=== PATIENT | male | born 1960 | race African-American/Black ===

== ENCOUNTER 2024-09-19 05:09 | Emergency (ER) | payer OTHER, SELFPAY ==
--- NOTE | ~2024-09-19 | XR_ITS ---
CLINICAL HISTORY: diff breathing 1 view chest x-ray. Comparison: None Findings: The lungs are adequately expanded. No focal confluent opacity. No effusion or pneumothorax. Cardiac and mediastinal contours are within normal limits. No acute osseous abnormality. Old right-sided rib fracture suggested. Impression: No acute process. This document has been electronically signed by: Wild Leos MD on 09/19/2024 08:07:38
--- NOTE | ~2024-09-19 | XR_ITS ---
EXAMINATION: XR FOOT, LEFT CLINICAL INFORMATION: pain 2nd toe COMPARISON: None available. TECHNIQUE: AP, lateral, and oblique views of the left foot. FINDINGS: The bones and soft tissues are normal. No fracture, especially no abnormality involving the second toe.. Alignment is anatomic. Mild reduction in the PIP and DIP joint spaces are noted. There is a small retrocalcaneal enthesophyte and dorsal intertarsal osteophytosis. Minimal soft tissue swelling distal second toe is noted. XR/XR foot LT min 3V IMPRESSION: No visible acute fracture or dislocation. Mild DJD PIP and DIP joints. No fracture involving the right second. There is minimal soft tissue swelling distal second digit. Electronically signed by: Sadi Avalos MD 09/19/2024 09:14 AM HOMER
[2024-09-19 05:13] VITALS: BP 131/79; PULSE 111; RESP 20; TEMP 38.2; O2SAT 98; BMI 36.2
--- NOTE | 2024-09-19 06:50 | ECG_ITS ---
Test Reason : CHEST PAIN/SOB Blood Pressure : / mmHG Vent. Rate : 079 BPM Atrial Rate : 078 BPM P-R Int : 000 ms QRS Dur : 068 ms QT Int : 342 ms P-R-T Axes : 119 050 136 degrees QTc Int : 392 ms Atrial fibrillation Cannot rule out Anterior infarct , age undetermined ST & T wave abnormality, consider lateral ischemia Abnormal ECG No previous ECGs available Referred By: Generic ED Physician Electronically Signed By:CHARLIE BENTLEY MD
[2024-09-19 07:53] LABS: Influenza A PCR POSITIVE (Negative); Influenza B PCR NEGATIVE (Negative); Resp Syncy Virus RNA Qual PCR NEGATIVE (Negative); SARS COV2 PCR INHOUSE NEGATIVE (Negative)
--- NOTE | 2024-09-19 08:03 | ED_ITS ---
HPI - General Adult General Chief complaint: General Medical Stated complaint: r toe and ankle pain, sob, headache Time Seen by Provider: 09/19/24 08:02 Source: patient Mode of arrival: wheelchair Limitations: other (poor historian) History of Present Illness ED Provider: KHOA ENGLISH narrative: 63 yo male with PMH of afib on eliquis, CKD, HTN, DM, uses inhalers but unclear if he has COPD - he goes to [facility] and doesn't know much history. He c/o waking up with cough, dyspnea, body aches, doesn't feel well. He denies to me that this started Thursday he states just today. He does note no trauma to L 2nd toe but has pain no redness, no rash, he states it hurts to touch. He is a very poor historian. Tells me he is not around sick contacts and no recent travel. Has not taken any medications for this yet. He has no chest pain MD complaint: viral syndrome, toe pain Onset (ago): day(s) (1) Location: left and lower extremity Radiation: non-radiation Severity: moderate Quality: aching Pain Consistency: intermittent Relieving factors: none Exacerbating factors: movement Associated symptoms: shortness of breath Treatments prior to arrival: none Related Data Previous Rx's ?Medication ?Instructions ?Recorded oseltamivir 75 mg capsule (Tamiflu) 75 mg PO BID 5 days #9 caps 09/19/24 prednisone 20 mg tablet 40 mg (2 x 20 mg) PO DAILY 4 days 09/19/24 #8 tabs Allergies Allergy/AdvReac Type Severity Reaction Status Date / Time crab Allergy Swelling Verified 09/19/24 05:16 Review of Systems 2 Review of Systems: Constitutional : No Fever, No Chills ENT/Mouth : No Ear Pain, No Hoarseness, No sore throat Eyes: No Eye Pain, No Swelling, No Redness, No Foreign Body Cardiovascular : No Chest Pain, pos SOB Respiratory : No Cough, No Dyspnea Gastrointestinal : No Nausea, No Vomiting, No Diarrhea, No abdominal Pain Genitourinary : No Dysuria, No Hematuria Musculoskeletal : positive joint pain, pos Myalgias, No Joint Swelling Skin : No Skin lacerations, No rash Neuro : No Weakness, No Numbness, No Loss of Consciousness, No Dizziness, No Headache All other systems reviewed and are negative [facility] Past Medical History Attestation statement: The following information was validated with the patient. Source: old records reviewed Medical History CKD (chronic kidney disease) HTN (hypertension) with goal to be determined Afib Social History Social History (Updated 09/19/24 @ 08:34 by Brittni Trammell DO) Patient Tobacco Use Status: Never used Tobacco Advance Directives: No Advance Directives Information Provided: Yes Do you have a plan to hurt others: No Plan Physical Exam ED Vital Signs: Vital Signs - 24 hr 09/19/24 05:13 09/19/24 09:20 Temperature 100.7 F H Pulse Rate 111 H 90 Respiratory Rate 20 19 Blood Pressure 131/79 111/68 Pulse Oximetry 98 95 Oxygen Delivery Method Room Air Room Air BMI result Body Mass Index 36.2 Appearance: Alert. Oriented X3. No acute distress. Eyes: Pupils equal, round and reactive to light. ENT: Pharynx normal. Neck: Normal inspection. Neck supple. CVS: irregular and tachycardic heart rate and rhythm. Pulses normal. Respiratory: No respiratory distress. Breath sounds slight exp wheeze noted Abdomen: Soft and nontender. Skin: Skin warm and dry. Normal skin color. Normal skin turgor. Extremities: No lower extremity edema. distal pulses intact, has thickened yellow toenails but no purulence, redness, warmth, SILT intact, no swelling, L 2nd toe hammer toe noted but otherwise no signs of skin breakdown, toe infection, nail infection. Neuro: Oriented X 3. No motor deficit. No sensory deficit. Course Course Course Narrative: tachycardia and fever to due to Flu A viral infection and not bacterial infection Reevaluation(s) Reevaluation #1: trop negative will repeat 2nd trop if negative stable for DC Medications Administered Generic Name Dose Route Start Last Admin Trade Name Freq PRN Reason Stop Dose Admin Magnesium Sulfate 2 gm in 50 mls @ 25 mls/hr 09/19/24 09:02 09/19/24 09:24 Magnesium Sulfate/H2o IV 09/19/24 11:01 25 mls/hr ONCE ONE Administration Discontinued Medications Generic Name Dose Route Start Last Admin Trade Name Freq PRN Reason Stop Dose Admin Acetaminophen 650 mg 09/19/24 08:26 09/19/24 08:48 Acetaminophen 325 Mg Tablet PO 09/19/24 08:27 650 mg ONCE ONE Administration Albuterol Sulfate 2.5 mg/ 0 mg 09/19/24 09:03 09/19/24 09:04 Albuterol/Ipratropium 3 ml INHALE 09/19/24 09:04 1 dose ONCE ONE Administration Oseltamivir Phosphate 75 mg 09/19/24 09:19 09/19/24 09:34 Oseltamivir Phosphate 75 Mg Capsule PO 09/19/24 09:20 75 mg ONCE ONE Administration Potassium Chloride 20 meq 09/19/24 09:02 09/19/24 09:25 Potassium Chloride Er 20 Meq Tab.Er.Prt PO 09/19/24 09:03 20 meq ONCE ONE Administration Medical Decision Making Medical Decision Making [facility] Narrative: 63 yo male with PMH of afib on eliquis, CKD, HTN, DM, uses inhalers but unclear if he has COPD here with viral like illness and not feeling well has some mild dyspnea but no leg edema and is compliant with his eliquis - doubt VTE, has low grade fever and diffuse body aches - viral panel ordered, has toe pain but no signs of infection and pulses intact no signs of embolic event on exam toe is normal color and warm to touch. Labs, viral panel, CXR, toe xray, tylenol, records from [facility] Differential Diagnosis Differential Diagnoses: The differential diagnosis associated with the presentation includes viral syndrome, toe fracture, ingrown toenail without infection, reactive airway ds, aflutter Admission/Observation Consideration of admission/observation: Escalation of care including admission/observation considered no hypoxia feels better repeat trop flat given repletion will start on tamiflu and oral prednisone he is feeling much better stable for DC Lab Data [facility] Lab Attestation statement: I reviewed the patient's lab results. 09/19/24 08:28 09/19/24 08:28 Labs: Lab Results 09/19/24 09/19/24 Range/Units 06:57 08:28 WBC 7.1 (4.8-10.8) X10*3/uL RBC 4.46 L (4.60-5.80) X10*6/uL Hgb 12.8 L (14.0-18.0) g/dl Hct 39.2 L (42.0-52.0) % MCV 87.9 (80.0-98.0) fL MCH 28.7 (27.0-33.0) pg MCHC 32.7 (31.0-36.0) g/dl RDW 13.8 (11.0-16.0) % Plt Count 240 (160-400) X10*3/uL MPV 9.6 (9.4-12.4) fL Immature Gran % (Auto) 0.4 (0.0-0.4) % Neut % (Auto) 81.6 H (45-73) % Lymph % (Auto) 7.8 L (20-40) % [place] % (Auto) 10.2 (2-11) % Eos % (Auto) 0.0 (0-4) % Baso % (Auto) 0.0 (0-2) % Lymph # (Auto) 0.6 L (1.2-4.9) X10*3/uL [place] # (Auto) 0.7 (0.1-1.2) X10*3/uL Eos # (Auto) 0.0 (0.0-0.4) X10*3/uL Baso # (Auto) 0.0 (0.0-0.2) X10*3/uL Abs Immat Gran (auto) 0.03 (0.00-0.03) X10*3/uL Absolute Neuts (auto) 5.8 (2.0-8.3) x10*3/uL Absolute Nucleated RBC 0.000 (0.0-0.012) X10*3/uL Nucleated RBC % (auto) 0.0 (0.0-0.2) /100WBC PT 13.2 H (10.9-12.4) SEC INR 1.1 (0.9-1.1) Sodium 140 (135-145) mmol/L Potassium 3.2 L (3.3-5.1) mmol/L Chloride 102 (96-108) mmol/L Carbon Dioxide 28 (22-29) mmol/L Anion Gap 13 (12-20) BUN 16 (9-16) mg/dL Creatinine 1.15 (0.5-1.4) mg/dL Estim Creat Clear Calc 96.0 Estimated GFR > 60 Random Glucose 134 H (60-115) mg/dL Calcium 9.0 (8.4-10.2) mg/dL Magnesium 1.4 L* (1.6-2.6) mg/dL Total Bilirubin 0.5 (0.0-1.0) mg/dL Direct Bilirubin 0.2 (0.0-0.5) mg/dL AST 21 (5-37) U/L ALT 19 (0-40) U/L Alkaline Phosphatase 59 (39-117) U/L Troponin I High Sens 17.6 (<3.5-35.0) ng/L B-Natriuretic Peptide 93 (<100) pg/mL Total Protein 6.8 (6.5-8.0) g/dL Albumin 3.7 (3.5-5.0) g/dL Lipase 17 (8-78) U/L Influenza Type A (PCR) POSITIVE A (Negative) Influenza Type B (PCR) NEGATIVE (Negative) RSV RNA Qual (PCR) NEGATIVE (Negative) SARS-CoV-2 RNA (RT-PCR) NEGATIVE (Negative) Independent Interpretation I performed an independent interpretation of an: EKG and Plain X-Ray (normal ) Interpretation: Rate: Rhythm: afib [place]: normal Normal QRS complex. ST T wave : no DONNY, inverted t waves I, aVL, V5-V6, II qTC: 392 prior studies: no prior The study has been interpreted contemporaneously by me. . Radiology Impression Discussion of test interpretation with radiology: I have reviewed the radiologist's reading. External Record Review External record reviewed: Outpatient record Critical Care Time Critical Care Time Critical Care Time: Yes Total Critical Care Time: 35 Attestation: repeat labs, IV magneisum to prevent arrhythmia I attest to this time spent taking care of the patient Discharge Plan Discharge Clinical Impression: Hypomagnesemia, Hypokalemia, Influenza A Patient Disposition: Home, Self-Care Instructions: Hypokalemia (ED), Influenza (ED), Hypomagnesemia (ED) Additional Instructions: low potassium and magnesium please follow up with doctor return for increased chest pain, trouble breathing, vomiting or any other concerns rest and stay hydrated you are started on flu medications xrays are normal you need to see your doctor about your toe and get a quality assurance associate there is no fracture or sign of infection right now Prescriptions: New oseltamivir [Tamiflu] 75 mg capsule 75 mg PO BID 5 Days Qty: 9 0RF prednisone 20 mg tablet 40 mg PO DAILY 4 Days Qty: 8 0RF Print Language: Kazakh
[2024-09-19 08:32] LABS: MANUAL DIFF FLAG NO
[2024-09-19 08:34] LABS: Hematocrit 39.2 % (42.0-52.0); Hemoglobin 12.8 g/dl (14.0-18.0); Imm Gran Abs Auto 0.03 X10*3/uL (0.00-0.03); Imm Gran Pct Auto 0.4 % (0.0-0.4); Lymphocytes Absolute Auto 0.6 X10*3/uL (1.2-4.9); Lymphocytes Percent Auto 7.8 % (20-40); Mean Corpuscular HGB Conc 32.7 g/dl (31.0-36.0); Mean Corpuscular Hemoglobin 28.7 pg (27.0-33.0); Mean Corpuscular Volume 87.9 fL (80.0-98.0); Mean Platelet Volume 9.6 fL (9.4-12.4); Monocytes Absolute Auto 0.7 X10*3/uL (0.1-1.2); Monocytes Percent Auto 10.2 % (2-11); Neutrophils Absolute Auto 5.8 x10*3/uL (2.0-8.3); Neutrophils Percent Auto 81.6 % (45-73); Platelet Count 240 X10*3/uL (160-400); Red Blood Count 4.46 X10*6/uL (4.60-5.80); Red Cell Distribution Width 13.8 % (11.0-16.0); White Blood Count 7.1 X10*3/uL (4.8-10.8)
[2024-09-19 08:38] LABS: INTERNATIONAL NORM RATIO 1.1 (0.9-1.1); Prothrombin Time 13.2 SEC (10.9-12.4)
[2024-09-19] MEDS: Acetaminophen 325 MG TABLET 650 MG PO (08:48)
[2024-09-19 08:54] LABS: B Type Natriuretic Peptide 93 pg/mL (<100)
[2024-09-19 08:55] LABS: Troponin-I High Sensitivity 17.6 ng/L (<3.5-35.0)
[2024-09-19 09:00] LABS: Alanine Aminotransferase 19 U/L (0-40); Albumin Level 3.7 g/dL (3.5-5.0); Alkaline Phosphatase 59 U/L (39-117); Anion Gap 13 (12-20); Aspartate Amino Transferase 21 U/L (5-37); Bilirubin Direct 0.2 mg/dL (0.0-0.5); Bilirubin Total 0.5 mg/dL (0.0-1.0); Blood Urea Nitrogen 16 mg/dL (9-16); Carbon Dioxide 28 mmol/L (22-29); Chloride 102 mmol/L (96-108); Estimated Glomerular Filt Rate > 60; Glucose Random 134 mg/dL (60-115); Lipase 17 U/L (8-78); Magnesium 1.4 mg/dL (1.6-2.6); Potassium 3.2 mmol/L (3.3-5.1); Sodium 140 mmol/L (135-145); Total Protein 6.8 g/dL (6.5-8.0)
[2024-09-19] MEDS: Albuterol Sulfate 2.5 MG, Albuterol/Iprat 2.5/0.5MG 3 ML 3 ML INHALE (09:04)
[2024-09-19 09:20] VITALS: BP 111/68; PULSE 90; RESP 19; O2SAT 95
[2024-09-19] MEDS: Magnesium Sulfate/H2O 2 GM/50 ML PIGGYBACK IV (09:24)
[2024-09-19] MEDS: Potassium Chloride ER 20 MEQ TAB.ER.PRT PO (09:25)
[2024-09-19] MEDS: Oseltamivir Phosphate 75 MG CAPSULE PO (09:34)
[2024-09-19 11:00] LABS: Troponin-I High Sensitivity 15.4 ng/L (<3.5-35.0)
--- NOTE | 2024-09-19 11:01 | PHA.MEDREC ---
Pharmacy Consult ? Medication Reconciliation Pharmacy has completed the medication reconciliation. Utilized list sent from facility.
[2024-09-19 11:16] VITALS: BP 132/65; PULSE 82; RESP 20; TEMP 36.1; O2SAT 95
[2024-09-19] MEDS: predniSONE 20 MG TABLET 40 MG PO (11:18)
== END 2024-09-19 11:31 | disposition home or self-care (01) ==
PROVIDERS: Emergency Provider Emergency Medicine; PCP Internal Medicine
DX: J10.1 Influenza due to other identified influenza virus with other respiratory manifestations (principal); E83.42 Hypomagnesemia; E87.6 Hypokalemia; R07.9 Chest pain, unspecified; M79.675 Pain in left toe(s); E11.22 Type 2 diabetes mellitus with diabetic chronic kidney disease; I12.9 Hypertensive chronic kidney disease with stage 1 through stage 4 chronic kidney disease, or unspecified chronic kidney disease; N18.9 Chronic kidney disease, unspecified; I48.91 Unspecified atrial fibrillation; J44.9 Chronic obstructive pulmonary disease, unspecified; R06.00 Dyspnea, unspecified; Z79.01 Long term (current) use of anticoagulants
CPT/HCPCS: 0241U; 36415; 71045; 73630; 80048; 80076; 83690; 83735; 83880; 84484; 85025; 85610; 93005; 94640; 96365; 96366; 99284; 99285; J3475

== ENCOUNTER → 2024-09-19 06:49 | Outpatient (BNV) | payer OTHER, SELFPAY | PROVIDERS: Emergency Provider Emergency Medicine; Visit Provider Radiology Vascular & Interventional Radiology | DX: R06.02 Shortness of breath (principal); M79.675 Pain in left toe(s) | CPT/HCPCS: 71045; 73630 ==

== ENCOUNTER → 2024-09-19 06:50 | Outpatient (BNV) | payer OTHER, SELFPAY | PROVIDERS: Emergency Provider Emergency Medicine; Visit Provider Internal Medicine Cardiovascular Disease | DX: R07.9 Chest pain, unspecified (principal); R06.02 Shortness of breath; I48.91 Unspecified atrial fibrillation | CPT/HCPCS: 93010 ==